=== PATIENT | female | born 1955 | race Caucasian/White ===

== ENCOUNTER 2017-06-02 19:46 | Emergency (ER) | END 2017-06-02 21:17 | disposition home or self-care (01) ==

== ENCOUNTER 2017-07-24 20:35 | Emergency (ER) | END 2017-07-25 01:03 | disposition home or self-care (01) ==

== ENCOUNTER 2017-11-07 09:16 | Day surgery (SDC) | END 2017-11-07 14:31 | disposition home or self-care (01) ==